=== PATIENT | female | born 1990 | race Asian ===

== ENCOUNTER 2016-12-26 11:02 | Inpatient (IN) | payer OTHER ==
[2016-12-26 12:51] LABS: MCH 28.1 pg (25.7-33.7); MCHC 32.9 g/dl (32.0-36.0); MEAN CELL VOLUME 85.3 fl (80-96); MEAN PLT VOLUME 6.6 fl (7.5-11.1); PLATELET COUNT 287 K/MM3 (134-434); RDW 14.4 % (11.6-15.6); WHITE BLOOD COUNT 11.9 K/mm3 (4.0-10.0)
[2016-12-26 12:56] VITALS: BMI 31.6
[2016-12-26 13:09] LABS: INR 0.95 (0.82-1.09); PROTHROMBIN TIME (PATIENT) 10.4 SEC (9.98-11.88)
[2016-12-26 13:12] LABS: ACTIVATED PTT 31.7 SECONDS (26.9-34.4)
[2016-12-26 13:14] LABS: CALCIUM 8.2 mg/dL (8.5-10.1); COCKROFT - GAULT 211.2165; CREATININE 0.5 mg/dL (0.55-1.02)
--- NOTE | 2016-12-26 13:51 | HP ---
Past Medical History - Primary Care Physician PCP:: Sera Hough - Admission Chief Complaint: 26 yo P0 @ 40.2 weeks presents for post term IOL. +FM, no VB, no LOF, some contractions History of Present Illness: 26 yo P0 @ 40 weeks Late transfer of care from [place], records available, dating LMP c/w 1st trimester US History Source: Patient Limitations to Obtaining History: No Limitations - Past Medical History ...: 1 ...Para: 0 ...Term: 0 ...: 0 ...Spon : 0 ...Induced : 0 ...Multiple Gestation: 0 ...LMP: 03/19/16 ... Weeks Gestation by Dates: 40.2 ...EDC by Dates: 12/24/16 ...EDC by Sono: 12/26/16 - Past Surgical History Past Surgical History: Yes: None Hx Myomectomy: No Hx Transabdominal Cerclage: No - Smoking History Smoking history: Never smoked Have you smoked in the past 12 months: No - Alcohol/Substance Use Hx Alcohol Use: No Home Medications - Allergies Allergies/Adverse Reactions: Allergies Allergy/AdvReac Type Severity Reaction Status Date / Time No Known Allergies Allergy Verified 12/26/16 12:07 - Home Medications Home Medications: Ambulatory Orders Pnv95/Ferrous Fumarate/FA [ Vitamin Tablet] 1 each PO DAILY 12/26/16 Review of Systems - Review of Systems Constitutional: reports: No Symptoms Eyes: reports: No Symptoms HENT: reports: No Symptoms Neck: reports: No Symptoms Cardiovascular: reports: No Symptoms Respiratory: reports: No Symptoms Gastrointestinal: reports: No Symptoms Genitourinary: reports: No Symptoms Breasts: reports: No Symptoms Reported Musculoskeletal: reports: No Symptoms Integumentary: reports: No Symptoms Neurological: reports: No Symptoms Endocrine: reports: No Symptoms Hematology/Lymphatic: reports: No Symptoms Psychiatric: reports: No Symptoms Physical Exam - Maternity Vital Signs: Vital Signs Temperature 98.2 F 12/26/16 11:02 Pulse Rate 101 H 12/26/16 12:29 Respiratory Rate 20 12/26/16 12:29 Blood Pressure 106/72 12/26/16 12:29 O2 Sat by Pulse Oximetry (%) Constitutional: Yes: Well Nourished Neck: Yes: WNL Cardiovascular: Yes: WNL Lungs: Clear to auscultation - Abdominal Exam/OB Fundal Height: 40 Number of Fetuses: Single Presentation: Vertex Monitor Mode: External (130's) Category: I Accelerations: Uniform Decelerations: None - Vaginal Exam/OB Vaginal Bleediing: No Dilatation (cm): 3 Effacement (%): long Amniotic Membrane Status: Intact Presentation: Vertex/Position Station: -3 - Physical Exam Musculoskeletal: Yes: WNL Extremities: Yes: WNL - Labs Lab Results: CBC, BMP 12/26/16 12:35 12/26/16 12:35 Assessment/Plan 26yo P0 @ 40.2wks Admited for IOL Cervidil placed @ 2 pm Fetus with Category I tracing and requires no intervention. Patient is not in labor and has unfavorable cervix. We discussed the treatment options including expectant management awaiting spontaneous labor , Cervidil vs pitocin for labor induction. We discussed the risks and benefits of each option. The patient prefers to proceed with Cervidil to further ripen the cervix. I explained the risks of failed induction, tacysystole, distress, shoulder dystocia, and/or maternal trauma, hemorrhage, need for section, etc. The pt verbalized her understanding and requested to proceed. IVF, Pain managment as needed Intermittent monitoring
[2016-12-26 13:59] LABS: HIV 1 & 2 AB NEGATIVE; HIV 1 AGp24 NEGATIVE
[2016-12-26] MEDS ORDERED: TUBERCULIN PPD 5 TU/0.1ML SYRINGE (IN PATIENT USE ONLY) ID ONE (14:00)
[2016-12-26 14:23] LABS: PLATELET ESTIMATE ADEQUATE (NORMAL); POLYCHROMASIA 1+; TEAR DROP CELLS RARE
[2016-12-26] MEDS: DEXTROSE 5%-LACTATED RINGERS 1,000 ML IV SCH (15:00)
[2016-12-26] MEDS ORDERED: DINOPROSTONE 10 MG VAGINAL SUPPOSITORY VG ONE (16:30)
[2016-12-26] MEDS ORDERED: BUTORPHANOL TARTRATE 1 MG/ML VIAL IVPUSH ONE (20:45)
[2016-12-27] MEDS ORDERED: FENTANYL/BUPIVACAINE/NS/PF - PCEA - 50 ML DISP.SYRIN EP SCH (00:45)
--- NOTE | 2016-12-27 05:51 | PN ---
Progress Note, Labor Vaginal Exam #1 Labor Exam Date: 12/27/16 Labor Exam Time: 05:10 Heart Rate (range): 135 Dilatation: FD Effacement (%): 100 Amniotic Membrane Status: Ruptured Presentation: Vertex/Position Station: +2 Remarks: EFD 8.5lb 26 yo P0 @ 40.3wks Second stage of labor patient is very comfortable, no desire to push Stop epidural, Start very low Pitocin Fetus Category 1
--- NOTE | 2016-12-27 09:06 | PN ---
Progress Note, Labor Vaginal Exam #2 Labor Exam Date: 12/27/16 Labor Exam Time: 08:30 Heart Rate (range): 130's occasional varriable decel, Category 2, mod Dilatation: FD Effacement (%): 100% Amniotic Membrane Status: Ruptured Presentation: Vertex/Position Station: +2 (26 yo P0 @ 40.3 wks patient still has poor urge to push, Pitocin started MFS reasuring will start pushing, when feels better urge to push)
[2016-12-27] MEDS ORDERED: morphine SULFATE/Preservative Free 0.5 MG/ML (1cc Syringe) EP ONE (11:20)
--- NOTE | 2016-12-27 11:21 | CON.NEONAT ---
- Maternal History Mother's Age: 26 Status: 1 Mother's Blood Type: A+ve HBSAG: Negative Date: 06/09/16 RPR: Negative Date: 06/09/16 Group B Strep: Negative HIV: Negative Data - Admission Admission Time: 11:02 Wks Gestation by Dates: 40.2 Wks Gestation by Sono: 40.0 Gender: Female Type of Delivery: Primary C/S (Failed vacuum) Reason for C Section: failed vacuum Score @1 Minute: 9 score @ 5 Minutes: 9 - Labs Labs: Baby's Blood Type, Mitesh Blood Type A POSITIVE 12/26/16 12:50 Level 2, History and Physical - [place] Infant Vital Signs: Vital Signs Temperature 99.0 F 12/27/16 06:40 Pulse Rate 72 12/27/16 09:30 Respiratory Rate 18 12/27/16 09:30 Blood Pressure 131/66 12/27/16 09:30 O2 Sat by Pulse Oximetry (%) 99 12/27/16 06:00 General Appearance: Yes: No Abnormalities Skin: Yes: No Abnormalities Head: Yes: No Abnormalities, Caput Eyes: Yes: No Abnormalities Ears: Yes: No Abnormalities Nose: Yes: No Abnormalities Mouth: Yes: No Abnormalities Chest: Yes: No Abnormalities Lungs/Respiratory: Yes: No Abnormalities Cardiac: Yes: No Abnormalities Abdomen: Yes: No Abnormalities, Umb Ves, 2 artery 1 vein Gastrointestinal: Yes: No Abnormalities Genitalia: No Abnormalities Genitalia, Female: Yes: Labia Normal Anus: Yes: No Abnormalities Extremities: Yes: No Abnormalities Femoral Pulse: Strong Ortolani Test: Negative Perea Test: Negative Spine: Yes: No Abnormalities Neuro: Yes: No Abnormalities Cry: Yes: No Abnormalities Assessment/Plan Primary C/S for failed vacuum Mom 26yrs old admitted for induction. PNL- nl, ROM 10hrs, clear fluid. cried soon after suctioned/ dried cord 3V, score 9/9 RNBC watch for Resp distress
[2016-12-27] MEDS ORDERED: ONDANSETRON 4 MG/2 ML VIAL IVPB PRN (11:40)
[2016-12-27] MEDS ORDERED: IBUPROFEN 600 MG TABLET (FP) PO PRN (11:40)
--- NOTE | 2016-12-27 12:01 | PN ---
Delivery - Delivery Section: Primary, Low Flap Transverse (26 yo P0 with failure to descent ) Type of Anesthesia: Epidural Episiotomy/Laceration: None EBL (cc): 700 Delivery, Single - Stages of Labor Date 1st Stage Initiatied: 12/27/16 Time 1st Stage Initiated: 02:00 Date 2nd Stage Initiated: 12/27/16 Time 2nd Stage Initiated: 05:00 Date of Delivery: 12/27/16 Time of Delivery: 11:06 Date Placenta Delivered: 12/27/16 Time Placenta Delivered: 11:07 Placenta: Yes: Expressed - Condition of Infant Media Intern/Food Taster Present: Yes Gender: Female Weight: 8 lb 3.2 oz Position: OA - 1 Minute Total Score: 9 5 Minutes Total Score: 9 - Feeding Plan Initial Plan: Exclusive throughout hospitalization Remarks - Remarks Remarks: Fully dilated at 5 am Started pushing effectively at 9am Very poor maternal effort Attempted vacuum assisted delivery heart rate reassuring throughout the attempt c/section called after 3 pop offs of the vacuum Uncomplicated rapid delivery of female infant over Phenensteil incision/low uterine segment incision EBL 700cc Urine out 150cc Fluids 1700cc NS
[2016-12-27] MEDS ORDERED: BENZOCAINE 20% 57 GM BOTTLE TP PRN (12:02)
[2016-12-27] MEDS ORDERED: diphenhydrAMINE HCL 25 MG CAPSULE (FP) PO PRN (12:02)
[2016-12-27] MEDS ORDERED: IBUPROFEN 800 MG/8 ML IJ IVPB PRN (12:02)
[2016-12-27] MEDS ORDERED: METHYLERGONOVINE MALEATE 0.2 MG/1 ML AMP IM PRN (12:02)
[2016-12-27] MEDS ORDERED: BENZOCAINE 28 GM HEMORRHOIDAL OINTMENT PR PRN (12:02)
[2016-12-27] MEDS ORDERED: WITCH HAZEL 50% (TUCKS) 40 PAD/JAR PAD TP PRN (12:02)
[2016-12-27] MEDS ORDERED: oxyCODONE HCL 5 MG TABLET PO PRN (12:02)
[2016-12-27 12:05] LABS: ARTERIAL BLOOD GAS BASE EXCESS -5.2 meq/l (-2-2); ARTERIAL BLOOD GAS HCO3 22.9 meq/L (22-26)
[2016-12-27 12:06] LABS: PT. ON O2? NO
[2016-12-27 12:07] LABS: ARTERIAL BLOOD GAS PO2 13.8 mmHg (80-100); ARTERIAL BLOOD GAS pH 7.23 (7.35-7.45)
[2016-12-27 12:08] LABS: ARTERIAL BLD GAS O2 SATURATION 13.3 % (90-98.9); ARTERIAL BLOOD GAS BASE EXCESS -5.8 meq/l (-2-2); ARTERIAL BLOOD GAS HCO3 20.9 meq/L (22-26); ARTERIAL BLOOD GAS pH 7.27 (7.35-7.45)
[2016-12-27 12:09] LABS: PT. ON O2? NO
[2016-12-27 12:10] LABS: ARTERIAL BLD GAS O2 SATURATION 38.9 % (90-98.9); ARTERIAL BLOOD GAS PO2 23.7 mmHg (80-100)
[2016-12-27] MEDS ORDERED: OXYTOCIN 20 UNITS in 0.9% NS 1,000 ML IV SCH (12:15)
[2016-12-27] MEDS: CEFAZOLIN (PRE-DOCKED) 50 ML IVPB SCH (17:47)
--- NOTE | 2016-12-27 19:00 | OP ---
DATE OF OPERATION: 12/27/2016 PREOPERATIVE DIAGNOSIS: Primary low flap transverse section for 26-year-old, para 0, due to failure to descend. POSTOPERATIVE DIAGNOSIS: Primary low flap transverse section for 26-year-old, para 0, due to failure to descend. PROCEDURE: Primary low-segment transverse section. SURGEON : Sera Hough MD PARK GUARD: Clemente CHOW TYPE OF ANESTHESIA: Epidural. ESTIMATED BLOOD LOSS: 700 mL. URINE OUTPUT: 150 mL. FLUIDS: 1700 mL. DESCRIPTION OF OPERATIVE PROCEDURE: After ensuring informed consent, patient was brought to the operating room, where she was placed in dorsal supine position with left lateral displacement. Patient was identified. Time-out was called. Pediatricians in presence. A Pfannenstiel skin incision was made with a scalpel and carried down to the level of fascia with the scalpel. Fascia was nicked with the scalpel and dissected bilaterally with Simon scissors. Fascia was tented with Kochers and dissected superiorly and inferiorly off the rectus muscle with Simon scissors. The fascia muscle was split in the midline. Peritoneum was entered bluntly and retracted posteriorly with bladder blade. Vesicouterine peritoneum was identified and dissected bilaterally. Bladder flap was created and retracted with a [place]. Uterine incision was made with a scalpel and dissected bilaterally with bandage scissors. Infant's head was identified and delivered atraumatically. The rest of the 's body was delivered atraumatically as well. The cord was clamped and cut x2. Infant was handed to awaiting pediatricians. The Apgars were 9 and 9, female infant, with weight of 8 pounds 3.2 ounces in occiput anterior presentation. Placenta was expressed. The uterus was cleared of clots and debris and closed with 0 Biosyn in 2 layers, a 2nd layer imbricating. Gutters were cleared of clots and debris. The uterus was firm. Abdomen was irrigated. Normal tubes and ovaries were visualized bilaterally. Peritoneum was closed with 0 Biosyn. The muscle was reapproximated in the midline with 0 Biosyn. Fascia was closed with 0 Vicryl in 1 running suture. The subcuticular area was cleared of clots and debris and skin was closed with 3-0 Biosyn. Instrument, lap, sponge count was correct x2. Physician President in the procedure was Melecio Corinna, physician's hr administrative assistant. The patient was brought to the recovery room in stable condition. Jeb [id number] MTDD
[2016-12-27] MEDS ORDERED: DEXTROSE 5%-LACTATED RINGERS 1,000 ML IV SCH (20:15)
[2016-12-28] MEDS: CEFAZOLIN (PRE-DOCKED) 50 ML IVPB SCH ×3 (01:38→22:32)
[2016-12-28] MEDS: DEXTROSE 5%-LACTATED RINGERS 1,000 ML IV SCH (04:30)
[2016-12-28] MEDS ORDERED: SODIUM CHLORIDE 500 ML IV STA (07:35)
--- NOTE | 2016-12-28 07:35 | PN ---
Post Progress Note - Subjective Subjective: 26 yo P1 now s/p Primary c/s pain well controlled 50cc/hour UA out, concentrated tolerating PO planing to breast feed Post Day: 1 Type of Delivery: Primary C/S Vital Signs: Vital Signs Temperature 98.7 F 12/28/16 05:24 Pulse Rate 112 H 12/28/16 05:24 Respiratory Rate 20 12/28/16 05:24 Blood Pressure 107/72 12/28/16 05:24 O2 Sat by Pulse Oximetry (%) 99 12/27/16 12:00 Breast Exam: Yes: Soft Uterus: Yes: Fundus Firm, Non-tender Incision: Yes: Dressing dry and intact Abdomen/GI: Yes: Abdomen soft, Tolerating PO Lochia: Yes: Rubra Lochia, amount: Small Extremities: Yes: Calves non-tender - Labs Labs: CBC WBC 11.9 K/mm3 (4.0-10.0) H 12/26/16 12:35 RBC 4.25 M/mm3 (3.60-5.2) 12/26/16 12:35 Hgb 11.9 GM/dL (10.7-15.3) 12/26/16 12:35 Hct 36.2 % (32.4-45.2) 12/26/16 12:35 MCV 85.3 fl (80-96) 12/26/16 12:35 MCHC 32.9 g/dl (32.0-36.0) 12/26/16 12:35 RDW 14.4 % (11.6-15.6) 12/26/16 12:35 Plt Count 287 K/MM3 (134-434) 12/26/16 12:35 MPV 6.6 fl (7.5-11.1) L 12/26/16 12:35 Neutrophils % 75.0 % (42.8-82.8) 12/26/16 12:35 Lymphocytes % 16.0 % (8-40) 12/26/16 12:35 Monocytes % 5.0 % (3.8-10.2) 12/26/16 12:35 Eosinophils % 1.0 % (0-4.5) 12/26/16 12:35 Myelocytes 2 % (0-2) 12/26/16 12:35 Differential Comment Manual diff done 12/26/16 12:35 Reactive Lymphocytes 1 % (0-80) 12/26/16 12:35 Platelet Estimate Adequate (NORMAL) 12/26/16 12:35 Polychromasia 1+ 12/26/16 12:35 Tear Drop Cells Rare 12/26/16 12:35 Morphology Comment Slide scanned 12/26/16 12:35 Assessment/Plan 26yo P1 s/p 1' c/section for fail;ure to descent VSS, Afibrile low UA output 500cc IVF bolus now CBC Rh+ if all stable d/c mobley routine PP care
[2016-12-28 08:51] LABS: BASOPHIL 0.3 % (0-2.0); EOSINOPHIL 0.2 % (0-4.5); MCH 27.8 pg (25.7-33.7); MCHC 32.4 g/dl (32.0-36.0); MEAN CELL VOLUME 85.8 fl (80-96); MEAN PLT VOLUME 6.7 fl (7.5-11.1); NEUTROPHILS 82.4 % (42.8-82.8); PLATELET COUNT 201 K/MM3 (134-434); RDW 14.6 % (11.6-15.6); WHITE BLOOD COUNT 19.3 K/mm3 (4.0-10.0)
[2016-12-28] MEDS ORDERED: SODIUM CHLORIDE 500 ML IV ONE (09:15)
--- NOTE | 2016-12-28 09:16 | PN ---
Progress Note, Physician Chief Complaint: s/p emergent c section under epidural anesthesia History of Present Illness: post op day one - Current Medication List Current Medications: Active Medications Acetaminophen (Tylenol -) 650 mg PO Q4H PRN PRN Reason: FEVER OR PAIN Benzocaine (Americaine Ointment -) 1 applic ND PRN PRN PRN Reason: PAIN Benzocaine (Americaine 20% [place] -) 1 spray TP PRN PRN PRN Reason: PAIN Bisacodyl (Dulcolax Suppository -) 10 mg RC PRN PRN PRN Reason: CONSTIPATION Diphenhydramine HCl (Benadryl Injection -) 50 mg IVPUSH Q4H PRN PRN Reason: Pruritis Diphenhydramine HCl (Benadryl -) 25 mg PO Q8H PRN PRN Reason: FOR ITCHING Fentanyl/Bupivacaine/Sodium Chlor (Bupivicaine 0.125%/Fentanyl 2mcg/Ml Pcea -) 0 ml EP ASDIR VALENTÍN PRN Reason: Protocol Last Admin: 12/27/16 00:00 Dose: 10 ml Dextrose/Lactated Ringer's (D5-Lr -) 1,000 mls @ 125 mls/hr IV ASDIR [facility] Last Admin: 12/27/16 22:00 Dose: 125 mls/hr Ibuprofen (Motrin -) 600 mg PO Q4H PRN PRN Reason: PAIN Methylergonovine Maleate (Methergine Injection -) 0.2 mg IM Q4H PRN PRN Reason: EXCESSIVE BLEEDING Oxycodone HCl (Roxicodone -) 5 mg PO Q4H PRN PRN Reason: PAIN LEVEL 1-5 Stop: 12/31/16 12:01 Senna/Docusate Sodium (Pericolace -) 2 tablet PO HS PRN PRN Reason: CONSTIPATION Simethicone (Mylicon -) 80 mg PO Q4H PRN PRN Reason: GAS Witch Tammy/Glycerin (Tucks Pads -) 1 pad TP PRN PRN PRN Reason: PAIN - Objective Vital Signs: Vital Signs Temperature 98.7 F 12/28/16 05:24 Pulse Rate 112 H 12/28/16 05:24 Respiratory Rate 20 12/28/16 09:00 Blood Pressure 107/72 12/28/16 05:24 O2 Sat by Pulse Oximetry (%) 99 04/09/17 12:00 Constitutional: Yes: Well Nourished Cardiovascular: Yes: WNL Respiratory: Yes: WNL Gastrointestinal: Yes: WNL Neurological: Yes: WNL Labs: CBC, BMP 12/28/16 07:55 12/26/16 12:35 INR, PTT INR 0.95 (0.82-1.09) 12/26/16 12:35 Assessment/Plan Patient is doing well, no adverse effect of the anesthetic, no headache, back ache, nausea or vomiting. Dept of anesthesia will sign off care at this time.
[2016-12-28] MEDS ORDERED: SODIUM CHLORIDE 1,000 ML IV SCH (10:15)
[2016-12-28] MEDS: IBUPROFEN 600 MG TABLET (FP) PO PRN ×2 (11:44→23:50)
[2016-12-28] MEDS: ACETAMINOPHEN 325 MG TABLET (FP) PO PRN ×2 (11:45→23:49)
[2016-12-28] MEDS: SIMETHICONE 80 MG TAB.CHEW (FP) PO PRN ×2 (11:46→23:47)
[2016-12-28] MEDS ORDERED: BISACODYL 10 MG SUPP.RECT RC PRN (12:02)
[2016-12-28] MEDS ORDERED: CEFAZOLIN (PRE-DOCKED) 50 ML IVPB SCH (13:30)
[2016-12-29] MEDS: CEFAZOLIN (PRE-DOCKED) 50 ML IVPB SCH (05:25)
[2016-12-29] MEDS: SIMETHICONE 80 MG TAB.CHEW (FP) PO PRN ×2 (05:32→23:41)
[2016-12-29] MEDS: ACETAMINOPHEN 325 MG TABLET (FP) PO PRN (05:32)
[2016-12-29] MEDS: IBUPROFEN 600 MG TABLET (FP) PO PRN ×2 (05:33→23:42)
--- NOTE | 2016-12-29 08:55 | PN ---
Post Progress Note - Subjective Subjective: 26 yo P1 now s/p 1' c/s for failure to descent voiding, ambulating, +flatus, tolerating PO Post Day: 1 Type of Delivery: Primary C/S Vital Signs: Vital Signs Temperature 98.2 F 12/29/16 05:34 Pulse Rate 83 12/29/16 05:34 Respiratory Rate 18 12/29/16 05:34 Blood Pressure 99/57 12/29/16 05:34 O2 Sat by Pulse Oximetry (%) 99 12/27/16 12:00 Breast Exam: Yes: Soft Uterus: Yes: Fundus Firm Incision: Yes: Sutures intact Abdomen/GI: Yes: Abdomen soft, Passing flatus, Tolerating PO Lochia: Yes: Rubra Lochia, amount: Small Extremities: Yes: Calves non-tender Activity: Ambulating - Labs Labs: CBC WBC 19.3 K/mm3 (4.0-10.0) H D 12/28/16 07:55 RBC 3.42 M/mm3 (3.60-5.2) L 12/28/16 07:55 Hgb 9.5 GM/dL (10.7-15.3) L D 12/28/16 07:55 Hct 29.3 % (32.4-45.2) L D 12/28/16 07:55 MCV 85.8 fl (80-96) 12/28/16 07:55 MCHC 32.4 g/dl (32.0-36.0) 12/28/16 07:55 RDW 14.6 % (11.6-15.6) 12/28/16 07:55 Plt Count 201 K/MM3 (134-434) D 12/28/16 07:55 MPV 6.7 fl (7.5-11.1) L 12/28/16 07:55 Neutrophils % 82.4 % (42.8-82.8) 12/28/16 07:55 Lymphocytes % 10.8 % (8-40) D 12/28/16 07:55 Monocytes % 6.3 % (3.8-10.2) 12/28/16 07:55 Eosinophils % 0.2 % (0-4.5) 12/28/16 07:55 Basophils % 0.3 % (0-2.0) 12/28/16 07:55 Myelocytes 2 % (0-2) 12/26/16 12:35 Differential Comment Manual diff done 12/26/16 12:35 Reactive Lymphocytes 1 % (0-80) 12/26/16 12:35 Platelet Estimate Adequate (NORMAL) 12/26/16 12:35 Polychromasia 1+ 12/26/16 12:35 Tear Drop Cells Rare 12/26/16 12:35 Morphology Comment Slide scanned 12/26/16 12:35 Assessment/Plan 26yo P1 s/p 1' c/section for failure to descent VSS, Afibrile High WBC will repeat CBC Rh+ routine PP care [place] ambulation, breast feeding
[2016-12-29 09:42] LABS: BASOPHIL 0.3 % (0-2.0); EOSINOPHIL 0.5 % (0-4.5); MCH 27.6 pg (25.7-33.7); MCHC 32.1 g/dl (32.0-36.0); MEAN PLT VOLUME 6.8 fl (7.5-11.1); PLATELET COUNT 248 K/MM3 (134-434); RDW 14.9 % (11.6-15.6)
[2016-12-29] MEDS ORDERED: SENNOSIDES/DOCUSATE COMBO (SENNA PLUS) TABLET (UD) PO PRN (22:00)
--- NOTE | 2016-12-30 07:16 | PN ---
Post Progress Note - Subjective Subjective: 26 yo P1 POD#3 ambulating, voiding, +BM Post Day: 3 Type of Delivery: Primary C/S Vital Signs: Vital Signs Temperature 98.7 F 12/29/16 22:00 Pulse Rate 81 12/29/16 22:00 Respiratory Rate 18 12/29/16 22:00 Blood Pressure 105/69 12/29/16 22:00 O2 Sat by Pulse Oximetry (%) 99 12/27/16 12:00 Breast Exam: Yes: Soft Uterus: Yes: Fundus Firm, Non-tender Incision: Yes: Sutures intact Abdomen/GI: Yes: Abdomen soft Lochia: Yes: Rubra Lochia, amount: Small Extremities: Yes: Calves non-tender Perineum: Yes: Intact Activity: Ambulating - Labs Labs: CBC WBC 18.0 K/mm3 (4.0-10.0) H 12/29/16 09:10 RBC 3.37 M/mm3 (3.60-5.2) L 12/29/16 09:10 Hgb 9.3 GM/dL (10.7-15.3) L 12/29/16 09:10 Hct 29.0 % (32.4-45.2) L 12/29/16 09:10 MCV 86.0 fl (80-96) 12/29/16 09:10 MCHC 32.1 g/dl (32.0-36.0) 12/29/16 09:10 RDW 14.9 % (11.6-15.6) 12/29/16 09:10 Plt Count 248 K/MM3 (134-434) D 12/29/16 09:10 MPV 6.8 fl (7.5-11.1) L 12/29/16 09:10 Neutrophils % 82.0 % (42.8-82.8) 12/29/16 09:10 Lymphocytes % 12.0 % (8-40) 12/29/16 09:10 Monocytes % 5.2 % (3.8-10.2) 12/29/16 09:10 Eosinophils % 0.5 % (0-4.5) D 12/29/16 09:10 Basophils % 0.3 % (0-2.0) 12/29/16 09:10 Myelocytes 2 % (0-2) 12/26/16 12:35 Differential Comment Manual diff done 12/26/16 12:35 Reactive Lymphocytes 1 % (0-80) 12/26/16 12:35 Platelet Estimate Adequate (NORMAL) 12/26/16 12:35 Polychromasia 1+ 12/26/16 12:35 Tear Drop Cells Rare 12/26/16 12:35 Morphology Comment Slide scanned 12/26/16 12:35 Assessment/Plan 26yo P1 s/p 1' c/section for failure to descent VSS, Afibrile High WBC will repeat CBC Rh+ routine PP care [place] ambulation, breast feeding consider d/c tonight or tomorrow am
[2016-12-30 07:54] VITALS: BP 111/70; PULSE 78; TEMP 98.6
[2016-12-30 08:19] LABS: BASOPHIL 0.3 % (0-2.0); EOSINOPHIL 1.6 % (0-4.5); MCH 27.7 pg (25.7-33.7); MCHC 32.2 g/dl (32.0-36.0); MEAN CELL VOLUME 85.9 fl (80-96); MEAN PLT VOLUME 6.8 fl (7.5-11.1); NEUTROPHILS 70.9 % (42.8-82.8); PLATELET COUNT 235 K/MM3 (134-434); RDW 14.8 % (11.6-15.6); WHITE BLOOD COUNT 12.5 K/mm3 (4.0-10.0)
--- NOTE | 2017-01-01 13:28 | PATH ---
Surgical Pathology Report Patient Name: MATILDE BLUNT Med. Rec. #: [id number] /Age/Gender: 1990 (Age: 26) / F Account: [id number] Location: [facility] OBS/STORE SALES CONSULTANT Taken: 12/27/2016 Received: 12/28/2016 Reported: 01/01/2017 Physicians: Sera Hough M.D. Specimen(s) Received PLACENTA Clinical History Failure of descent, failed vacuum assist Primary c/section Final Diagnosis PLACENTA, DELIVERY: FOCALLY DISRUPTED THIRD TRIMESTER PLACENTA WITH MODERATE PREVILLOUS, PERIVILLOUS, AND PRECHORIONIC FIBRIN DEPOSITION, DYSTROPHIC CALCIFICATIONS, THREE VESSEL UMBILICAL CORD, AND UNREMARKABLE PLACENTAL MEMBRANES. Electronically Signed Lavon Barbour M.D. Gross Description The specimen is received fresh, labeled "placenta" and is a 450 gram, 16.0 x 15.5 x 2.8 cm placenta with attached membranes and umbilical cord. The attached membranes are renner, translucent with focal opacities and insert marginally. The umbilical cord measures 7 cm in length and averages 1 cm in diameter. The cord inserts eccentrically, 3.5 cm to the nearest margin. No true knots or strictures are identified. Cut surface of the umbilical cord reveals 3 vessels. The surface is story-blue with fibrin deposition and appropriate caliber vessels. The maternal surface is red-brown with focal defects. Sectioning reveals red-brown, spongy parenchyma. No focal lesions are identified. Bicycle Subassembler sections are submitted in three cassettes as follows: 1- membrane rolls and umbilical cord; 2-3- full thickness sections of placenta. 12/31/2016 [facility]12/31/2016
--- NOTE | 2017-02-16 07:52 | DS ---
Physical Exam-LIBRARY AIDE Vital Signs: Vital Signs Temperature 98.6 F 12/30/16 07:52 Pulse Rate 78 12/30/16 07:52 Respiratory Rate 20 12/30/16 07:52 Blood Pressure 111/70 12/30/16 07:52 O2 Sat by Pulse Oximetry (%) 99 12/27/16 12:00 Constitutional: Yes: Well Nourished Eyes: Yes: WNL HENT: Yes: WNL Neck: Yes: WNL Cardiovascular: Yes: WNL Respiratory: Yes: WNL Gastrointestinal: Yes: WNL Renal/: Yes: WNL Pelvis: Yes: WNL External Genitalia: Yes: Normal Vaginal Exam: Yes: Normal Cervix: Yes: Normal Uterus: Yes: Normal ....Post : Yes: Uterus firm, Uterus non-tender Breast(s): Yes: WNL Musculoskeletal: Yes: WNL Extremities: Yes: WNL Integumentary: Yes: WNL Wound/Incision: Yes: Clean/Dry, Well Approximated Neurological: Yes: WNL ...Motor Strength: WNL Psychiatric: Yes: WNL Labs: CBC, BMP 12/30/16 07:30 12/26/16 12:35 Delivery - Delivery Section: Primary, Low Flap Transverse (26 yo P0 with failure to descent ) Type of Anesthesia: Epidural Episiotomy/Laceration: None EBL (cc): 700 Delivery, Single - Stages of Labor Date 1st Stage Initiatied: 12/27/16 Time 1st Stage Initiated: 02:00 Date 2nd Stage Initiated: 12/27/16 Time 2nd Stage Initiated: 05:00 Date of Delivery: 12/27/16 Time of Delivery: 11:06 Time Placenta Delivered: 11:07 Placenta: Yes: Expressed - Condition of Infant Final Armature Tester/Shipping Clerk Packing Present: Yes Name: Abdoul Vidales Gender: Female Weight: 8 lb 3.2 oz Position: OA Total Hours ROM (Hrs/Mins): 10h - 1 Minute Total Score: 9 5 Minutes Total Score: 9 - Feeding Plan Initial Plan: Exclusive throughout hospitalization Benefits of Exclusively reinforced: Yes Discharge Summary Reason For Visit: CERVICAL INDUCTION Condition: Good - Instructions Diet, Activity, Other Instructions: return to office in 1 week for incision check and 6 weeks for check. call for appointment. Referrals: Sera Hough MD [Staff Physician] - Disposition: HOME - Home Medications Comprehensive Discharge Medication List: Ambulatory Orders Pnv95/Ferrous Fumarate/FA [ Vitamin Tablet] 1 each PO DAILY 12/26/16
== END 2016-12-30 15:10 | disposition home or self-care (01) | DRG 766 ==
LOC: JLDR 11:02 → EDBD 11:02 → J3W 12-27 13:12
PROVIDERS: ADMIT Obstetrics & Gynecology; ATTEND Obstetrics & Gynecology
PROC: 10D00Z1 Extraction of Products of Conception, Low, Open Approach (ICD-10-PCS; principal; 2016-12-27)
PROC: 3E0P7GC Introduction of Other Therapeutic Substance into Female Reproductive, Via Natural or Artificial Opening (ICD-10-PCS; 2016-12-27)
DX: O48.0 Post-term pregnancy (principal); O62.0 Primary inadequate contractions; Z3A.40 40 weeks gestation of pregnancy; Z37.0 Single live birth
CPT/HCPCS: 36415; 36600; 80048; 82803; 85025; 85610; 85730; 86593; 86850; 86900; 86901; 87389; 88307-TC

== ENCOUNTER 2020-11-14 10:31 | Emergency (ER) | payer OTHER ==
[2020-11-14] MEDS ORDERED: SODIUM CHLORIDE 0.9% 500 ML INFUS.BAG IV ONE (11:20)
[2020-11-14 12:12] LABS: BASO % 0.2 % (0-2.0); EOS % 1.5 % (0-4.5); HEMATOCRIT 34.2 % (32.4-45.2); HEMOGLOBIN 11.5 GM/dL (10.7-15.3); LYMPH % 26.5 % (8-40); MCH 27.7 pg (25.7-33.7); MCHC 33.6 g/dl (32.0-36.0); MEAN CELL VOLUME 82.5 fl (80-96); MONO % 7.3 % (3.8-10.2); NEUT % 64.5 % (42.8-82.8); PLATELET COUNT 306 K/MM3 (134-434); RBC 4.14 M/mm3 (3.60-5.2); RDW 13.8 % (11.6-15.6); WHITE BLOOD COUNT 8.4 K/mm3 (4.0-10.0)
[2020-11-14 12:23] LABS: CHLORIDE 106 mmol/L (98-107); POTASSIUM 4.5 mmol/L (3.5-5.1); SODIUM 139 mmol/L (136-145)
[2020-11-14 12:24] LABS: GLUCOSE,RANDOM 113 mg/dL (74-106)
[2020-11-14 12:25] LABS: ALBUMIN 3.9 g/dl (3.4-5.0); ANION GAP 6 MMOL/L (8-16); BLOOD UREA NITROGEN 8.5 mg/dL (7-18); CALCIUM 8.9 mg/dL (8.5-10.1); CO2 28 mmol/L (21-32)
[2020-11-14 12:28] LABS: SGOT/AST 12 U/L (15-37); SGPT/ALT 18 U/L (13-61)
[2020-11-14 12:29] LABS: CREATININE 0.7 mg/dL (0.55-1.3)
[2020-11-14 12:30] LABS: TOT PROT 7.5 g/dl (6.4-8.2)
[2020-11-14 12:31] LABS: ALK PHOS 63 U/L (45-117); BILIRUBIN,TOTAL 0.3 mg/dL (0.2-1)
[2020-11-14 12:56] VITALS: TEMP 98.5; BMI 41.1
[2020-11-14 13:16] VITALS: BP 115/74; PULSE 69
== END 2020-11-14 13:16 | disposition home or self-care (01) ==
LOC: JER 10:31
DX: R55 Syncope and collapse (principal)
CPT/HCPCS: 36415; 80053; 82550; 82962; 84484; 84703; 85025; 93005; 93010; 99284-25

== ENCOUNTER 2021-08-08 21:11 | Emergency (ER) | payer OTHER ==
[2021-08-08 21:16] VITALS: BP 113/77; PULSE 83; TEMP 98; BMI 25.4
[2021-08-08] MEDS ORDERED: KETOROLAC TROMETHAMINE 30 MG/1 ML VIAL IM ONE (21:34)
[2021-08-08] MEDS ORDERED: KETOROLAC TROMETHAMINE 30 MG/1 ML VIAL ONE (21:54)
== END 2021-08-08 22:04 | disposition home or self-care (01) ==
LOC: JERFT 21:11 → JER 21:11 → JERFT 22:04
PROC: 3E0233Z Introduction of Anti-inflammatory into Muscle, Percutaneous Approach (ICD-10-PCS; principal; 2021-08-08)
DX: M26.69 Other specified disorders of temporomandibular joint (principal)
CPT/HCPCS: 99283-25

== ENCOUNTER 2021-11-04 16:41 | Emergency (ER) | payer OTHER ==
[2021-11-04 17:23] VITALS: BP 109/74; PULSE 96; TEMP 98; BMI 26.5
[2021-11-04] MEDS ORDERED: DEXAMETHASONE SOD PHOSPHATE 10 MG/1 ML VIAL IM ONE (18:03)
[2021-11-04] MEDS ORDERED: diphenhydrAMINE HCL 50 MG CAPSULE PO ONE (18:04)
[2021-11-04] MEDS ORDERED: diphenhydrAMINE HCL 25 MG CAPSULE (FP) PO ONE ×2 (18:16→18:23)
[2021-11-04] MEDS ORDERED: DEXAMETHASONE SOD PHOSPHATE 10 MG/1 ML VIAL ONE (18:16)
== END 2021-11-04 18:47 | disposition home or self-care (01) ==
LOC: JERFT 16:41
PROC: 3E023GC Introduction of Other Therapeutic Substance into Muscle, Percutaneous Approach (ICD-10-PCS; principal; 2021-11-04)
DX: L50.9 Urticaria, unspecified (principal)
CPT/HCPCS: 96372; 99284-25; J1100

== ENCOUNTER 2022-06-18 20:40 | Emergency (ER) | payer BC, OTHER ==
[2022-06-18 20:49] VITALS: BP 101/63; PULSE 100; RESP 17; TEMP 98.5; BMI 23.8
[2022-06-18] MEDS ORDERED: SODIUM CHLORIDE 0.9% 500 ML INFUS.BAG IV ONE (21:40)
[2022-06-18 22:46] LABS: BASO % 0.1 % (0-2.0); EOS % 0.5 % (0-4.5); HEMATOCRIT 28.3 % (32.4-45.2); HEMOGLOBIN 9.3 GM/dL (10.7-15.3); LYMPH % 19.9 % (8-40); MCH 26.3 pg (25.7-33.7); MCHC 32.9 g/dl (32.0-36.0); MEAN PLT VOLUME 6.4 fl (7.5-11.1); MONO % 7.8 % (3.8-10.2); NEUT % 71.7 % (42.8-82.8); PLATELET COUNT 283 10^3/uL (134-434); RBC 3.53 M/mm3 (3.60-5.2); RDW 15.1 % (11.6-15.6)
[2022-06-18 22:54] LABS: CALCIUM 7.9 mg/dL (8.5-10.1)
[2022-06-18 22:55] LABS: ALBUMIN 2.9 g/dl (3.4-5.0); BLOOD UREA NITROGEN 7.8 mg/dL (7-18)
[2022-06-18 22:58] LABS: CREATININE 0.7 mg/dL (0.55-1.3)
[2022-06-18 22:59] LABS: BILIRUBIN,TOTAL 0.5 mg/dL (0.2-1)
[2022-06-18 23:00] LABS: TOT PROT 6.8 g/dl (6.4-8.2)
== END 2022-06-18 23:48 | disposition home or self-care (01) ==
LOC: JER 20:40
DX: J18.9 Pneumonia, unspecified organism (principal); H60.392 Other infective otitis externa, left ear
CPT/HCPCS: 36415; 71046-TC-FY; 80053; 84703; 85025; 85379; 93005; 93010; 99285-25